=== PATIENT | female | born 1980 | race Caucasian/White ===

== ENCOUNTER 2017-08-30 11:44 | Observation (INO) | payer OTHER ==
[2017-08-30] MEDS ORDERED: ASPIRIN 81 MG CHEWABLE TABLET ONE (12:49)
[2017-08-30 13:08] LABS: Absolute Lymphocytes (CBC) 1.5 K/uL (0.7-4.9); Absolute Monocytes 0.4 K/uL (0.1-1.3); Absolute Neutrophil 6.6 K/uL (1.8-8.0); Basophils % 0.9 % (0-1.3); Eosinophils % 2.4 % (0-4.4); Hematocrit 36.3 % (36.0-45.0); Lymphocytes % 17.2 % (15.3-44.8); MCV 81.3 fL (80-100); MPV 6.7 fL (7.6-11.3); Monocytes % 4.8 % (3.3-12.3); RBC Red Blood Cell Count 4.47 M/uL (3.86-4.86)
[2017-08-30 13:12] LABS: Protime INR 1.04
[2017-08-30 13:23] LABS: Bicarbonate 27 mEq/L (21-31); Glucose Level 107 mg/dL (65-120); Potassium 3.8 mEq/L (3.6-5.0); Sodium Level 141 mEq/L (135-145)
[2017-08-30 13:30] LABS: ALT/SGPT 17 IU/L (10-60); AST/SGOT 15 IU/L (10-42); Albumin 3.4 g/dL (3.2-5.5); Alkaline Phosphatase 75 IU/L (42-121); BUN Blood Urea Nitrogen 12 mg/dL (6-20); Bilirubin Direct 0.1 mg/dL (0-0.2); Bilirubin Total 0.4 mg/dL (0.3-1.2); Magnesium 1.9 mg/dL (1.8-2.5)
--- NOTE | 2017-08-30 13:57 | RAD REPORT ---
EXAM DESCRIPTION: RAD - Chest Pa And Lat (2 Views) - 08/30/2017 1:42 pm CLINICAL HISTORY: Chest pain, shortness of breath COMPARISON: January 2015 TECHNIQUE: PA and lateral views of the chest were obtained. FINDINGS: The lungs are slightly underinflated. No focal mass, consolidation or failure finding. Lat eral view has motion degradation. When adjusting for inspiration and technique differences, no substa ntial change has occurred. Trachea is midline. Heart size is normal and central vasculature is with in normal limits. No pleural effusion or pneumothorax seen. No acute bony finding noted. No aortic abnormality. IMPRESSION: No acute cardiopulmonary process. No significant change from comparison.
--- NOTE | 2017-08-30 14:50 | RAD REPORT ---
EXAM DESCRIPTION: CT - Chest For Pe Angio - 08/30/2017 2:36 pm CLINICAL HISTORY: Chest pain, shortness of breath COMPARISON: Chest films same day TECHNIQUE: Dynamically enhanced 3 mm thick images of the chest were obtained during administration o f approximately 150mL Isovue 370 IV contrast. Coronal and oblique reconstruction images were generate d and reviewed. Exam utilizes a protocol to evaluate the pulmonary arterial tree. All CT scans are performed using dose optimization technique as appropriate and may include automated exposure control or mA/KV adjustment according to patient size. FINDINGS: No pulmonary emboli are identified. The aorta as imaged shows no acute or suspicious finding. No pericardial thickening or effusion. No focal mass or consolidation. Minimal interstitial edema or infiltrate could be masked in this sett ing. There is some atelectasis present posteriorly. Small to moderate bilateral pleural effusions are present layering along the dependent portion of the chest. No loculation. No pleural based mass. The re is no pneumothorax. No mediastinal or hilar suspicious masses. No chest wall masses or abnormal axillary lymphadenopathy. IMPRESSION: No pulmonary emboli identified. Small to moderate bilateral pleural effusions along the posterior aspect of the chest. No loculation. No focal mass or consolidation of the lung parenchyma. Interstitial edema or infiltrate is still poss ible.
[2017-08-30] MEDS ORDERED: NITROGLYCERIN 0.4 MG/TAB SL ONE (14:59)
[2017-08-30 15:05] LABS: Urine Blood NEGATIVE (NEG); Urine Glucose NEGATIVE (NEG); Urine Protein NEGATIVE (NEG)
--- NOTE | 2017-08-30 15:20 | EDPHYS ---
Physician Documentation [facility] Name: Gila Way Age: 36 yrs Sex: Female : 1980 Arrival Date: 08/30/2017 Time: 11:48 Bed 18 Private MD: Ricky Paula ED Physician Chris Starr HPI: 08/30 12:20 This 36 yrs old Female presents to ER via Ambulatory with complaints of wa Shortness Of Breath. 12:20 The patient has shortness of breath at rest, states SOB when lays down since last wa night. also cough with whitish sputum. denies fever. states recent 5 hr flight to [place]. h/o HTN. Onset: The symptoms/episode began/occurred last night. Duration: The symptoms are continuous, and are unchanged since they started. The patient's shortness of breath is aggravated by prone position, is alleviated by sitting up, partially. Associated signs and symptoms: Pertinent positives: productive cough, Pertinent negatives: diaphoresis, dizziness, fever, numbness in extremities. Severity of symptoms: At their worst the symptoms were moderate in the emergency department the symptoms have improved mildly. The patient has not experienced similar symptoms in the past. The patient has not recently seen a physician. 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 - Social history:: Patient/guardian denies using alcohol, street drugs, IV drugs, Smoking status: Patient/guardian denies using tobacco. - Family history:: not pertinent. - Hospitalizations: : No recent hospitalization is reported. ROS: 12:22 Constitutional: Negative for fever, chills, and weight loss, Eyes: Negative for injury, wa pain, redness, and discharge, ENT: Negative for injury, pain, and discharge, Neck: Negative for injury, pain, and swelling, Cardiovascular: Negative for chest pain, palpitations, and edema, Abdomen/GI: Negative for abdominal pain, nausea, vomiting, diarrhea, and constipation, Back: Negative for injury and pain, : Negative for injury, bleeding, discharge, and swelling, MS/Extremity: Negative for injury and deformity, Skin: Negative for injury, rash, and discoloration, Neuro: Negative for headache, weakness, numbness, tingling, and seizure. 12:22 Respiratory: Positive for shortness of breath, on exertion. 12:22 All other systems are negative. Exam: 12:23 Head/Face: Normocephalic, atraumatic. Eyes: Pupils equal round and reactive to light, wa extra-ocular motions intact. Lids and lashes normal. Conjunctiva and sclera are non-icteric and not injected. Cornea within normal limits. Periorbital areas with no swelling, redness, or edema. ENT: Nares patent. No nasal discharge, no septal abnormalities noted. Tympanic membranes are normal and external auditory canals are clear. Oropharynx with no redness, swelling, or masses, exudates, or evidence of obstruction, uvula midline. Mucous membranes moist. Neck: Trachea midline, no thyromegaly or masses palpated, and no cervical lymphadenopathy. Supple, full range of motion without nuchal rigidity, or vertebral point tenderness. No Meningismus. Chest/axilla: Normal chest wall appearance and motion. Nontender with no deformity. No lesions are appreciated. Cardiovascular: Regular rate and rhythm with a normal S1 and S2. No gallops, murmurs, or rubs. Normal PMI, no JVD. No pulse deficits. Abdomen/GI: Soft, non-tender, with normal bowel sounds. No distension or tympany. No guarding or rebound. No evidence of tenderness throughout. Back: No spinal tenderness. No costovertebral tenderness. Full range of motion. Skin: Warm, dry with normal turgor. Normal color with no rashes, no lesions, and no evidence of cellulitis. MS/ Extremity: Pulses equal, no cyanosis. Neurovascular intact. Full, normal range of motion. Neuro: Awake and alert, GCS 15, oriented to person, place, time, and situation. Cranial nerves II-XII grossly intact. Motor strength 5/5 in all extremities. Sensory grossly intact. Cerebellar exam normal. Normal gait. Psych: Awake, alert, with orientation to person, place and time. Behavior, mood, and affect are within normal limits. 12:23 Constitutional: The patient appears in no acute distress, alert, obese. 12:23 Respiratory: the patient does not display signs of respiratory distress, Respirations: normal, Breath sounds: bibasilar coarseness auscultated. Vital Signs: 12:00 BP 106 / 60; Pulse 75; Resp 18; Temp 98.4(TE); Pulse Ox 97% on R/A; Weight 176.9 kg; hj Height 5 ft. 10 in. (177.80 cm); Pain 5/10; 13:08 BP 152 / 96; Pulse 76; Resp 22; Pulse Ox 98% on R/A; ae1 14:46 BP 146 / 91; Pulse 74; Resp 20; Pulse Ox 98% on R/A; ae1 15:01 BP 138 / 81; Pulse 73; Resp 19; Pulse Ox 99% on R/A; ae1 15:15 BP 128 / 98; Pulse 72; Resp 19; Pulse Ox 100% on R/A; ae1 17:08 BP 141 / 94; Pulse 71; Resp 21; Pulse Ox 98% on R/A; ae1 18:14 BP 146 / 101; Pulse 72; Resp 69; Pulse Ox 99% on R/A; ae1 19:08 BP 164 / 101; Pulse 68; Resp 19; Pulse Ox 97% on R/A; ae1 21:31 BP 132 / 76; Pulse 62; Resp 16 S; Pulse Ox 97% on R/A; jd3 12:00 Body Mass Index 55.96 (176.90 kg, 177.80 cm) MDM: 12:05 Patient medically screened. wa 12:23 Differential diagnosis: CHF exacerbation, pneumonia, pulmonary edema, Pulmonary wa Embolism Unstable Angina. 15:17 Test interpretation: by ED physician or midlevel provider: EKG: HR 76. no within nml in limits. 15:17 Data reviewed: vital signs, lab test result(s), EKG. Test interpretation: by ED in physician or midlevel provider: CXR negative. CT chest: bilateral pleural effusions. no PE. Test interpretation: by ED physician or midlevel provider: mild elevation in BNP. 08/30 12:19 Order name: BMP; Complete Time: 14:07 in 08/30 12:19 Order name: BNP; Complete Time: 14:07 in 08/30 12:19 Order name: CBC with Diff; Complete Time: 14:07 in 08/30 12:19 Order name: Hepatic Function; Complete Time: 14:07 in 08/30 12:19 Order name: Magnesium in 08/30 12:19 Order name: PT-INR in 08/30 12:19 Order name: CT Chest For PE Angio; Complete Time: 14:52 in 08/30 12:19 Order name: XRAY Chest Pa And Lat (2 Views); Complete Time: 14:07 in 08/30 12:19 Order name: Troponin (emerg Dept Use Only) in 08/30 14:21 Order name: Urine Dipstick--Ancillary (enter results) 08/30 14:21 Order name: Urine --Ancillary (enter results); Complete Time: 15:11 08/30 12:19 Order name: EKG; Complete Time: 12:20 in 08/30 12:19 Order name: Cardiac monitoring; Complete Time: 13: in 08/30 12:19 Order name: EKG - Nurse/Tech; Complete Time: 13: in 08/30 12:19 Order name: IV Saline Lock; Complete Time: 13: in 08/30 12:19 Order name: Labs collected and sent; Complete Time: 13: in 08/30 12:19 Order name: O2 Per Protocol; Complete Time: 13:08 in 08/30 12:19 Order name: O2 Sat Monitoring; Complete Time: 13: in 08/30 12:19 Order name: Urine Dipstick-Ancillary (obtain specimen); Complete Time: 14:17 in Administered Medications: 12:57 Drug: Aspirin Chewable Tablet 324 mg Route: PO; ae1 15:22 Follow up: Response: No adverse reaction ae1 15:06 Drug: Nitroglycerin 0.4 mg Route: Sublingual; ae1 15:22 Follow up: Response: Blood pressure is lowered; 128/98 ae1 15:25 Drug: Tylenol 1000 mg Route: PO; ae1 19:09 Follow up: Response: Pain is decreased ae1 15:33 Drug: Lasix 40 mg Route: IVP; Site: right antecubital; ae1 17:07 Follow up: Response: Other; Patient has been up to restorrom 4 times to urinate since ae1 medication administration. Disposition: 08/30/17 15:20 Hospitalization ordered by Humberto Jacob for Observation. Preliminary diagnosis are Acute Dyspnea, Acute Bilateral Pleural Effusions. - Bed requested for Telemetry/MedSurg (observation). - Status is Observation. mb3 - Condition is Stable. - Problem is new. - Symptoms have improved. UTI on Admission? No Signatures: Dispatcher [employer] EDMS Oleg Mcnulty, RN RN Chuck Melendrez RN RN ae1 Lily Quinn RN RN df Chris Starr MD MD wa Barnett, Mark RN RN mb3 Corrections: (The following items were deleted from the chart) 19:32 15:20 Hospitalization Ordered by Humberto Jacob MD for Observation. Preliminary diagnosis df is Acute Dyspnea; Acute Bilateral Pleural Effusions. Bed requested for Telemetry/MedSurg (observation). Status is Observation. Condition is Stable. Problem is new. Symptoms have improved. UTI on Admission? No. in 22:08 19:32 08/30/2017 15:20 Hospitalization Ordered by Humberto Jacbo MD for Observation. mb3 Preliminary diagnosis is Acute Dyspnea; Acute Bilateral Pleural Effusions. Bed requested for Telemetry/MedSurg (observation). Status is Observation. Condition is Stable. Problem is new. Symptoms have improved. UTI on Admission? No. df
--- NOTE | 2017-08-30 15:20 | ER ---
Nurse's Notes [facility] Name: Gila Way Age: 36 yrs Sex: Female : 1980 Arrival Date: 08/30/2017 Time: 11:48 Bed 18 Private MD: Ricky Paula Diagnosis: Acute Dyspnea;Acute Bilateral Pleural Effusions Presentation: 08/30 11:55 Presenting complaint: Patient states: last night i started having shortness of breath hj espcially when i lay down and pain on my upper back in between my shoulder blades; i flew a 5 hours flight last week;. Transition of care: patient was not received from another setting of care. Onset of symptoms was August 30, 2017. Initial Sepsis Screen: Does the patient meet any 2 criteria? No. Patient's initial sepsis screen is negative. Does the patient have a suspected source of infection? No. Patient's initial sepsis screen is negative. Care prior to arrival: None. 11:55 Method Of Arrival: Ambulatory 11:55 Acuity: ARTURO 3 hj Triage Assessment: 11:59 General: Appears in no apparent distress. uncomfortable, Behavior is calm, cooperative, hj appropriate for age. Pain: Complains of pain in thoracic area. Respiratory: Reports shortness of breath Onset: The symptoms/episode began/occurred yesterday, the patient has mild shortness of breath. 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 - Social history:: Patient/guardian denies using alcohol, street drugs, IV drugs, Smoking status: Patient/guardian denies using tobacco. - Family history:: not pertinent. - Hospitalizations: : No recent hospitalization is reported. Screenin:21 Abuse screen: Denies threats or abuse. Nutritional screening: No deficits noted. ae1 Tuberculosis screening: No symptoms or risk factors identified. Fall Risk None identified. Assessment: 11:59 Cardiovascular: Rhythm is regular. Respiratory: Airway is patent Respiratory effort is hj even, unlabored, Respiratory pattern is regular, symmetrical, Breath sounds are clear. 14:15 Reassessment: Patient appears in no apparent distress at this time. No changes from ae1 previously documented assessment. Patient and/or family updated on plan of care and expected duration. Pain level reassessed. Updated on lab results and wait time for further diagnostics. 15:55 Reassessment: Patient and/or family updated on plan of care and expected duration. Pain ae1 level reassessed. Patient is emotional since diagnosis. Provided calming reassurance and therapeutic communication. patient is calmer. 17:11 Reassessment: Patient appears in no apparent distress at this time. No changes from ae1 previously documented assessment. Patient and/or family updated on plan of care and expected duration. Pain level reassessed. Patient denies pain at this time. Patient states feeling better. 18:14 Reassessment: Patient appears in no apparent distress at this time. No changes from ae1 previously documented assessment. Patient and/or family updated on plan of care and expected duration. Pain level reassessed. Patient states feeling better. 19:09 Reassessment: Patient appears in no apparent distress at this time. No changes from ae1 previously documented assessment. Patient and/or family updated on plan of care and expected duration. Pain level reassessed. 21:31 Reassessment: Patient appears in no apparent distress at this time. Patient and/or jd3 family updated on plan of care and expected duration. Pain level reassessed. Patient is alert, oriented x 3, equal unlabored respirations, skin warm/dry/pink. Vital Signs: 12:00 BP 106 / 60; Pulse 75; Resp 18; Temp 98.4(TE); Pulse Ox 97% on R/A; Weight 176.9 kg; hj Height 5 ft. 10 in. (177.80 cm); Pain 5/10; 13:08 BP 152 / 96; Pulse 76; Resp 22; Pulse Ox 98% on R/A; ae1 14:46 BP 146 / 91; Pulse 74; Resp 20; Pulse Ox 98% on R/A; ae1 15:01 BP 138 / 81; Pulse 73; Resp 19; Pulse Ox 99% on R/A; ae1 15:15 BP 128 / 98; Pulse 72; Resp 19; Pulse Ox 100% on R/A; ae1 17:08 BP 141 / 94; Pulse 71; Resp 21; Pulse Ox 98% on R/A; ae1 18:14 BP 146 / 101; Pulse 72; Resp 69; Pulse Ox 99% on R/A; ae1 19:08 BP 164 / 101; Pulse 68; Resp 19; Pulse Ox 97% on R/A; ae1 21:31 BP 132 / 76; Pulse 62; Resp 16 S; Pulse Ox 97% on R/A; jd3 12:00 Body Mass Index 55.96 (176.90 kg, 177.80 cm) ED Course: 11:48 Patient arrived in ED. rg4 11:49 Ricky Paula MD is Private Physician. rg4 11:57 Triage completed. hj 12:00 Arm band placed on left wrist. hj 12:05 Chris Starr MD is Attending Physician. wa 12:30 Placed in gown. Bed in low position. Call light in reach. Side rails up X 1. Cardiac ae1 monitor on. Pulse ox on. NIBP on. 12:47 Chuck Melendrez, RN is Primary Nurse. ae1 13:08 Initial lab(s) drawn, by de, sent to lab. Inserted saline lock: 20 gauge in right dh3 antecubital area, using aseptic technique. Blood collected. 13:23 Radiology exam delayed due to lab results not completed at this time. (BUN/Creatinine) vr test not completed at this time. 13:25 Patient moved to radiology via wheelchair. mh1 13:39 X-ray completed. Patient tolerated procedure well. mh1 13:40 Patient moved back from radiology. mh1 13:45 XRAY Chest Pa And Lat (2 Views) In Process Unspecified. EDMS 14:13 Radiology exam delayed due to test not completed at this time. vr 14:[address] via stretcher. ae1 14:36 CT Chest For PE Angio In Process Unspecified. EDMS 15:19 Humberto Jacob MD is Hospitalizing Provider. wa 20:51 Primary Nurse role handed off by Chuck Melendrez, RN rg2 21:28 Flores, Mauri, RN is Primary Nurse. jd3 21:42 No provider procedures requiring assistance completed. Patient admitted, IV remains in jd3 place. Administered Medications: 12:57 Drug: Aspirin Chewable Tablet 324 mg Route: PO; ae1 15:22 Follow up: Response: No adverse reaction ae1 15:06 Drug: Nitroglycerin 0.4 mg Route: Sublingual; ae1 15:22 Follow up: Response: Blood pressure is lowered; 128/98 ae1 15:25 Drug: Tylenol 1000 mg Route: PO; ae1 19:09 Follow up: Response: Pain is decreased ae1 15:33 Drug: Lasix 40 mg Route: IVP; Site: right antecubital; ae1 17:07 Follow up: Response: Other; Patient has been up to restorrom 4 times to urinate since ae1 medication administration. Intake: Outcome: 15:20 Decision to Hospitalize by Provider. mi 21:42 Admitted to Med/surg accompanied by nurse, via wheelchair, room 225, with chart, Report jd3 called to Mary CONRAD 21:42 Condition: stable 21:42 Instructed on the need for admit, Demonstrated understanding of instructions. 22:08 Patient left the ED. mb3 Signatures: Dispatcher [employer] EDMS Sandro Montero rg2 Tisha Guerin Jessica Oscar Henry, RN RN hj Elliott, Andrea, RN RN ae1 Garcia, Rubi rg4 Cornelia Escudero 3 Chris Starr MD MD wa Davies, Jonathon, RN RN jd3 Barnett, Mark, RN RN mb3 Corrections: (The following items were deleted from the chart) 12:04 12:00 Pulse 75bpm; Resp 18bpm; Pulse Ox 97% RA; Temp 98.4F Temporal; 176.9 kg; Height 5 hj ft. 10 in.; BMI: 55.9; Pain 5/10; hj 14:46 14:20 Patient moved to NV via wheelchair. ae1 ae1 15:01 14:45 Patient moved back from NV. ae1 nj
[2017-08-30] MEDS ORDERED: ACETAMINOPHEN 500 MG TAB ONE ×2 (15:23→21:25)
[2017-08-30] MEDS ORDERED: FUROSEMIDE 40 MG/4 ML VIAL ONE (15:32)
--- NOTE | 2017-08-30 16:20 | EKG ---
Test Date: 2017-08-30 Test Time: 12:48:37 Jewish History Professor: JOY MEASUREMENT RESULTS: Intervals: Rate: 76 OK: 148 QRSD: 88 QT: 396 QTc: 445 [place]: P: 36 OK: 148 QRS: 29 T: 30 INTERPRETIVE STATEMENTS: Normal sinus rhythm Normal ECG No previous ECG available for comparison Electronically Signed On 08-30-17 16:19:51 CDT by Loc Hilario
[2017-08-30] MEDS ORDERED: ACETAMINOPHEN 500 MG TAB PO PRN (21:33)
[2017-08-30] MEDS ORDERED: ONDANSETRON 4 MG/2 ML VIAL IV PRN (21:33)
--- NOTE | 2017-08-31 05:38 | P.HP ---
Certification for Inpatient Patient admitted to: Observation With expected LOS: <2 Midnights Practitioner: I am a practitioner with admitting privileges, knowledge of patient current condition, hospital course, and medical plan of care. Services: Services provided to patient in accordance with Admission requirements found in Title 42 Section 412.3 of the Code of Federal Regulations Patient History Date of Service: 08/30/17 Reason for admission: dyspnea History of Present Illness: Ms Way is a 36 years old woman morbid obese with history of HTN, who came to ED complaining of SOB associated with back pain, between her shoulder blades , on and off lasting for the whole day. She denied any fever or chills. No chest pain, no cough. In ED work up remarkable for normal WBC count, no fever, CTA chest report no PE, no dissection, but bilateral small to moderate pleural effusion. Allergies tramadol Allergy (Verified 08/30/17 22:14) Hives Tramadol HCl Allergy (Uncoded 08/30/17 22:14) Unknown Home Medications: Albuterol Sulfate [Ventolin Hfa] 2 puff IH SEECOM 08/30/17 Doxazosin Mesylate 1 tab PO BID 08/30/17 Escitalopram Oxalate [Lexapro] 1 tab PO DAILY 08/30/17 Montelukast [Singulair*] 1 tab PO DAILY 08/30/17 Nebivolol HCl [Bystolic*] 1 tab PO BID 08/30/17 Olmesartan Medoxomil [Benicar] 40 mg PO DAILY 08/30/17 - Past Medical/Surgical History Has patient received pneumonia vaccine in the past: Yes Diabetic: No -: HTN -: Depression -: obesity -: Gastric stapling - Family History Mother -: Diabetes, Other (see notes) Notes: HYPOTHROIDISM, ADDISSON Father -: Hypertension - Social History Smoking Status: Never smoker Alcohol use: No CD- Drugs: No Caffeine use: Yes Place of Residence: Home Review of Systems 10-point ROS is otherwise unremarkable Physical Examination - Vital Signs Temperature: 98.1 F Blood Pressure: 157/93 Pulse: 68 Respirations: 16 Pulse Ox (%): 95 - Physical Exam General: Alert, In no apparent distress HEENT: Atraumatic, PERRLA, Mucous membr. moist/pink, EOMI, Sclerae nonicteric Neck: Supple, 2+ carotid pulse no bruit, No LAD, Without JVD or thyroid abnormality Respiratory: Clear to auscultation bilaterally, Normal air movement Cardiovascular: Regular rate/rhythm, Normal S1 S2 Gastrointestinal: Normal bowel sounds, No tenderness Musculoskeletal: No tenderness Integumentary: No rashes Neurological: Normal gait, Normal speech, Normal strength at 5/5 x4 extr, Normal tone, Normal affect Lymphatics: No axilla or inguinal lymphadenopathy - Studies Laboratory Data (last 24 hrs) 08/30/17 13:00: PT 12.3, INR 1.04 08/30/17 13:00: WBC 8.9, Hgb 11.6 L, Hct 36.3, Plt Count 323 08/30/17 13:00: B-Natriuretic Peptide 263 H 08/30/17 13:00: Sodium 141, Potassium 3.8, BUN 12, Creatinine 0.63, Glucose 107 , Magnesium 1.9, Total Bilirubin 0.4, AST 15, ALT 17, Alkaline Phosphatase 75 Assessment and Plan - Problems (Diagnosis) (1) Pleural effusion Current Visit: Yes Status: Acute (2) Obesity Current Visit: Yes Status: Acute Qualifiers: Obesity type: due to excess calories Obesity classification: unspecified obesity classification Serious obesity comorbidity presence: unspecified whether serious comorbidity present Qualified Code(s): E66.09 - Other obesity due to excess calories (3) HTN (hypertension) Current Visit: Yes Status: Acute Qualifiers: Hypertension type: essential hypertension Qualified Code(s): I10 - Essential (primary) hypertension - Plan The patient will be admitted to the hospital due to dyspnea. She has bilateral pleural effusion as source of her symptoms. She improved after diuretic treatment. Will order an ECHO, consult Dr Wagner. Continue with IV lasix. - Advance Directives Does patient have a Living Will: No Does patient have a Durable POA for Healthcare: No - Code Status/Comfort Care Code Status Assessed: Yes Code Status: Full Code
[2017-08-31 06:42] LABS: Absolute Lymphocytes (CBC) 1.7 K/uL (0.7-4.9); Absolute Monocytes 0.6 K/uL (0.1-1.3); Absolute Neutrophil 4.7 K/uL (1.8-8.0); Basophils % 0.7 % (0-1.3); Eosinophils % 4.3 % (0-4.4); Hematocrit 33.5 % (36.0-45.0); Lymphocytes % 22.6 % (15.3-44.8); MCH 26.2 pg (27.0-35.0); MCV 81.2 fL (80-100); MPV 7.1 fL (7.6-11.3); Monocytes % 8.5 % (3.3-12.3); RBC Red Blood Cell Count 4.13 M/uL (3.86-4.86)
[2017-08-31 06:52] LABS: BUN Blood Urea Nitrogen 14 mg/dL (6-20); Bicarbonate 26 mEq/L (21-31); Glucose Level 92 mg/dL (65-120); Potassium 3.9 mEq/L (3.6-5.0); Sodium Level 139 mEq/L (135-145)
[2017-08-31] MEDS ORDERED: ENOXAPARIN 40 MG/0.4 ML SQ SCH (09:00)
[2017-08-31] MEDS ORDERED: FUROSEMIDE 40 MG/4 ML VIAL IV SCH (09:00)
--- NOTE | 2017-08-31 13:15 | ECHO ---
HEIGHT: 5 ft 10 in WEIGHT: 398 lb 5 oz DATE OF STUDY: 08/31/[address]: 2-DIMENSIONAL: YES M.MODE: YES DOPPLER: YES COLOR FLOW: YES TDS: YES PORTABLE: NO DEFINITY: NO BUBBLE STUDY: NO DIAGNOSIS: CONGESTIVE HEART FAILURE CARDIAC HISTORY: CATHERIZATION: NO SURGERY: NO PROSTHETIC VALVE: NO PACEMAKER: NO MEASUREMENTS (cm) DIASTOLIC (NORMALS) SYSTOLIC (NORMALS) IVSd 1.0 (0.6-1.2) LA Diam 4.3 (1.9-4.0) LVEF 65% LVIDd 4.6 (3.5-5.7) LVIDs 2.9 (2.0-3.5) %FS 35% LVPWd 1.0 (0.6-1.2) Ao Diam 2.9 (2.0-3.7) 2 DIMENSIONAL ASSESSMENT: RIGHT ATRIUM: NORMAL LEFT ATRIUM: DILATED RIGHT VENTRICLE: NORMAL LEFT VENTRICLE: NORMAL TRICUSPID VALVE: NORMAL MITRAL VALVE: NORMAL PULMONIC VALVE: NORMAL AORTIC VALVE: NORMAL PERICARDIAL EFFUSION: NONE AORTIC ROOT: NORMAL LEFT VENTRICULAR WALL MOTION: NORMAL DOPPLER/COLOR FLOW: TRACE AORTIC REGURGITATION COMMENTS: NORMAL LEFT VENTRICULAR EJECTION FRACTION. DILATED LEFT ATRIUM. TRACE AORTIC REGURGITATION. TECHNOLOGIST: [place] BLUM
--- NOTE | 2017-08-31 15:24 | P.DS ---
Admission Date: 08/30/17 Discharge Date: 08/31/17 Disposition: ROUTINE DISCHARGE Discharge Condition: GOOD Reason for Admission: dyspnea Brief History of Present Illness: Ms Way is a 36 years old woman morbid obese with history of HTN, who came to ED complaining of SOB associated with back pain, between her shoulder blades , on and off lasting for the whole day. She denied any fever or chills. No chest pain, no cough. In ED work up remarkable for normal WBC count, no fever, CTA chest report no PE, no dissection, but bilateral small to moderate pleural effusion. Hospital Course: Patient was placed on telemetry and started on IV lasix.She had TTE done which revealed normal EF with mild AR.Her symptoms improved significantly overnight and her vitals remained stable.She was discharged to follow up with PCP. Vital Signs/Physical Exam: Temp Pulse Resp BP Pulse Ox 98.2 F 71 20 139/88 96 08/31/17 12:00 08/31/17 12:00 08/31/17 12:00 08/31/17 12:00 08/31/17 12:00 General: Alert, In no apparent distress, Oriented x3 HEENT: Atraumatic, Normocephalic, PERRLA Neck: Supple, JVD not distended, No Thyromegaly, No LAD Respiratory: Clear to auscultation bilaterally, Normal air movement Cardiovascular: No edema, Normal pulses, Regular rate/rhythm, Normal S1 S2 Gastrointestinal: Normal bowel sounds, Soft and benign, Non-distended, W/out hepatosplenomegaly, No tenderness, No masses, No rebound, No guarding Musculoskeletal: No clubbing, No swelling, No contractures, No erythema, No tenderness, No warmth Neurological: Normal speech, Normal tone, Sensation intact Laboratory Data at Discharge: WBC 7.4 K/uL (4.3-10.9) D 08/31/17 05:33 Hgb 10.8 g/dL (12.0-15.0) L 08/31/17 05:33 Hct 33.5 % (36.0-45.0) L 08/31/17 05:33 Plt Count 267 K/uL (152-406) 08/31/17 05:33 PT 12.3 SECONDS (9.5-12.5) 08/30/17 13:00 INR 1.04 08/30/17 13:00 Sodium 139 mEq/L (135-145) 08/31/17 05:33 Potassium 3.9 mEq/L (3.6-5.0) 08/31/17 05:33 BUN 14 mg/dL (6-20) 08/31/17 05:33 Creatinine 0.67 mg/dL (0.44-1.00) 08/31/17 05:33 Glucose 92 mg/dL (65-120) 08/31/17 05:33 Magnesium 1.9 mg/dL (1.8-2.5) 08/30/17 13:00 Total Bilirubin 0.4 mg/dL (0.3-1.2) 08/30/17 13:00 AST 15 IU/L (10-42) 08/30/17 13:00 ALT 17 IU/L (10-60) 08/30/17 13:00 Alkaline Phosphatase 75 IU/L (42-121) 08/30/17 13:00 B-Natriuretic Peptide 263 pg/ml (<=100) H 08/30/17 13:00 Home Medications: Albuterol Sulfate [Ventolin Hfa] 2 puff IH SEECOM 08/30/17 Doxazosin Mesylate 1 tab PO BID 08/30/17 Escitalopram Oxalate [Lexapro] 1 tab PO DAILY 08/30/17 Montelukast [Singulair*] 1 tab PO DAILY 08/30/17 Nebivolol HCl [Bystolic*] 1 tab PO BID 08/30/17 Olmesartan Medoxomil [Benicar] 40 mg PO DAILY 08/30/17 Patient Discharge Instructions: Follow up with PCP in one week. Return to ER with new or worsening symptoms Diet: AHA Activity: Ad дмитрий Physician Review: Patient Assessed, Agree with Above Assessment and Plan Time spent managing pt's care (in minutes): 25
== END 2017-08-31 17:50 | disposition home or self-care (01) ==
LOC: ER 11:44 → ERHOLD 15:21 → 2ND 21:11
PROVIDERS: ADMIT Internal Medicine; ATTEND Internal Medicine
DX: J90 Pleural effusion, not elsewhere classified (principal); E66.01 Morbid (severe) obesity due to excess calories; Z68.43 Body mass index [BMI] 50.0-59.9, adult; I10 Essential (primary) hypertension
CPT/HCPCS: 36415; 71046; 71275; 80048; 80076; 81003; 81025; 83735; 83880; 84484; 85025; 85610; 93005; 93306; 94760; 96374; 99285; G0378; J1650; Q9967